=== PATIENT | male | born 1990 | race Caucasian/White ===

== ENCOUNTER → 2017-09-22 | Outpatient (CLI) | payer OTHER ==
--- NOTE | 2017-09-22 16:54 | RAD ---
Left foot AP lateral and oblique History: Pain status post injury The visualized osseous structures appear normal. Impression Negative examination.
== END | disposition home or self-care (01) ==
LOC: RAD 16:34
PROVIDERS: ATTEND General Practice
DX: M79.672 Pain in left foot (principal); S93.50 Unspecified sprain of toe; X58.XXXD Exposure to other specified factors, subsequent encounter
CPT/HCPCS: 73630

== ENCOUNTER 2018-01-24 11:45 | Emergency (ER) | payer OTHER ==
[~2018-01-24] VITALS: Ht 185.4 cm; Wt 108.9 kg
[2018-01-24 11:55] VITALS: BP 138/74
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
[2018-01-26 05:14] LABS: HCV ANTIBODY <0.1 s/co ratio (0.0-0.9); HEP A IGM ABDY Negative (Negative)
== END 2018-01-24 12:29 | disposition home or self-care (01) ==
LOC: ER 11:45
DX: Z77.21 Contact with and (suspected) exposure to potentially hazardous body fluids (principal)
CPT/HCPCS: 36415; 80074; 86703; 99284